=== PATIENT | female | born 1985 | race Caucasian/White ===

== ENCOUNTER 2021-05-19 19:10 | Emergency (ER) | payer OTHER ==
[~2021-05-19] VITALS: Ht 162.6 cm; Wt 55.8 kg
[2021-05-19] MEDS ORDERED: FOLIC ACID20 MG (19:37)
[2021-05-19] MEDS ORDERED: MIRALAX510 GM PO (22:46)
== END 2021-05-19 22:53 | disposition home or self-care (01) ==
LOC: ER 19:10
DX: K59.00 Constipation, unspecified (principal)

== ENCOUNTER 2021-12-20 15:15 | Inpatient (IN) | payer OTHER ==
[~2021-12-20] VITALS: Ht 162.6 cm; Wt 3.2 kg
[~2021-12-20 15:15] MED LIST: FOLIC ACID20 MG; MIRALAX510 GM PO
[2021-12-29] MEDS ORDERED: PRENATAL TABLE1 EAC1 PO (08:21)
== END 2022-01-01 13:50 | disposition home or self-care (01) | DRG 788 ==
LOC: EDSTATUS 15:15 → OB/GYN 12-29 07:03 → LDR 12-29 07:03 → OB/GYN 12-29 07:03 → LDR 12-29 15:15 → OB/GYN 12-29 16:41
PROVIDERS: ADMIT Obstetrics & Gynecology; ATTEND Obstetrics & Gynecology Gynecology
PROC: 4A1HXCZ Monitoring of Products of Conception, Cardiac Rate, External Approach (ICD-10-PCS; 2021-12-29)
PROC: 10D00Z1 Extraction of Products of Conception, Low, Open Approach (ICD-10-PCS; principal; 2021-12-29 15:15)
DX: O36.8330 Maternal care for abnormalities of the fetal heart rate or rhythm, third trimester, not applicable or unspecified (principal); O62.1 Secondary uterine inertia; Z3A.40 40 weeks gestation of pregnancy; Z37.0 Single live birth; Z20.822 Contact with and (suspected) exposure to COVID-19

== ENCOUNTER → 2021-12-28 | Outpatient (CLI) | payer OTHER ==
[~2021-12-28] MED LIST changes: +PRENATAL TABLE1 EAC1 PO
== END | disposition home or self-care (01) ==
LOC: NST 14:13
PROVIDERS: ATTEND Obstetrics & Gynecology
DX: Z34.83 Encounter for supervision of other normal pregnancy, third trimester (principal)

== ENCOUNTER 2023-11-22 06:44 | Inpatient (IN) | payer OTHER ==
[~2023-11-22] VITALS: Ht 162.6 cm; Wt 72.1 kg
[2023-11-22 06:12] VITALS: BP 126/80
[2023-11-22] MEDS ORDERED: RINGERS SOLUTION,LACTATED 1,000 ML IV SCH (07:00)
[2023-11-22] MEDS ORDERED: CITRIC ACID/SODIUM CITRATE 30 ML BLIST.PACK PO SCH (07:00)
[2023-11-22 07:29] VITALS: BP 115/78
[2023-11-22] MEDS ORDERED: AMPICILLIN SODIUM 2,000 MG VIAL IV ONE (07:30)
[2023-11-22 07:37] LABS: HEMATOCRIT 35.6 % (36.0-45.00); HEMOGLOBIN 12.3 g/dL (12.0-15.00); MEAN CELL VOLUME 95.2 fL (80.00-100.00); MEAN CORPUSCULAR HEMOGLOBIN 32.8 pg (27.00-32.0); MEAN CORPUSCULAR HGB CONC 34.4 g/dl (32.0-36.0); PLATELET COUNT 174 K/uL (150-450); RED BLOOD COUNT 3.74 M/uL (4.00-6.00); RED CELL DISTRIBUTION WIDTH 12.5 % (11.5-14.5)
[2023-11-22 08:31] LABS: INR < 0.93; PARTIAL THROMBOPLASTIN TIME 29.2 SECONDS (22.0-34.0); PROTHROMBIN TIME 10.2 SECONDS (9.0-11.5)
[2023-11-22 08:51] LABS: ALBUMIN 2.5 gm/dL (3.4-5.0); BILIRUBIN TOTAL 0.34 mg/dL (0.3-1.2); CALCIUM 8.2 mg/dL (8.5-10.1); CREATININE SERUM 0.56 mg/dL (0.55-1.02); GFR 120.52; GLOBULINA 3.6 G/DL (2.4-3.5); POTASSIUM 3.79 mEq/L (3.5-5.1); TOTAL PROTEIN 6.1 gm/dL (6.4-8.2)
[2023-11-22] MEDS ORDERED: MORPHINE SULFATE 4 MG/ML CARTRIDGE IV PRN (09:00)
[2023-11-22] MEDS ORDERED: OXYTOCIN 1,000 ML IV SCH (09:00)
[2023-11-22] MEDS ORDERED: OXYTOCIN 10 UNITS/ML VIAL IV ONE (09:30)
[2023-11-22] MEDS ORDERED: CHLORHEXIDINE GLUCONATE 120 ML BOTTLE TOP ONE (09:30)
[2023-11-22] MEDS ORDERED: TRIAMCINOLONE ACETONIDE 40 MG/ML VIAL IM ONE (09:30)
[2023-11-22] MEDS ORDERED: ERYTHROMYCIN BASE OPHT 1GM EACH TUBE OP ONE (09:30)
[2023-11-22] MEDS ORDERED: MORPHINE SULFATE 4 MG/ML VIAL IV ONE ×2 (10:10→11:45)
[2023-11-22 13:59] VITALS: BP 125/78
[2023-11-22 16:33] VITALS: BP 127/76
[2023-11-23 02:26] VITALS: BP 106/69
[2023-11-23 08:26] VITALS: BP 115/75
[2023-11-23] MEDS ORDERED: IBUprofen 400 MG TABLET PO SCH (09:00)
[2023-11-23 12:00] LABS: HEMOGLOBIN 12.4 g/dL (12.0-15.00); MEAN CORPUSCULAR HEMOGLOBIN 32.4 pg (27.00-32.0); MEAN CORPUSCULAR HGB CONC 33.4 g/dl (32.0-36.0); PLATELET COUNT 180 K/uL (150-450); RED BLOOD COUNT 3.81 M/uL (4.00-6.00); RED CELL DISTRIBUTION WIDTH 12.7 % (11.5-14.5)
[2023-11-23 16:12] VITALS: BP 113/72
[2023-11-24 00:13] VITALS: BP 126/79
[2023-11-24] MEDS ORDERED: OxyCODONE HCL 5 MG TABLET (ROXICODONE) PO PRN (06:00)
[2023-11-24 08:30] VITALS: BP 133/92
[2023-11-24] MEDS ORDERED: IBUprofen 400 MG TABLET PO SCH (09:00)
== END 2023-11-24 20:03 | disposition home or self-care (01) | DRG 788 ==
LOC: LDR 06:44 → OB/GYN 06:44 → O/R 10:14 → OB/GYN 11:14 → O/R 11:54 → OB/GYN 13:29
PROVIDERS: Obstetrics & Gynecology; ADMIT Obstetrics & Gynecology; ATTEND Obstetrics & Gynecology
PROC: 0DNW0ZZ Release Peritoneum, Open Approach (ICD-10-PCS; 2023-11-22)
PROC: 4A1HXCZ Monitoring of Products of Conception, Cardiac Rate, External Approach (ICD-10-PCS; 2023-11-22)
PROC: 10D00Z1 Extraction of Products of Conception, Low, Open Approach (ICD-10-PCS; principal; 2023-11-22 07:45)
DX: O34.211 Maternal care for low transverse scar from previous cesarean delivery (principal); O99.892 Other specified diseases and conditions complicating childbirth; N73.6 Female pelvic peritoneal adhesions (postinfective); Z3A.39 39 weeks gestation of pregnancy; Z37.0 Single live birth; Z20.822 Contact with and (suspected) exposure to COVID-19